=== PATIENT | female | born 1980 | race Hispanic/Latino ===

== ENCOUNTER 2017-08-03 05:30 | Inpatient (IN) | payer MEDICAID ==
[~2017-08-03] VITALS: Ht 157.5 cm; Wt 77.1 kg
[2017-08-03] MEDS ORDERED: LACTATED RINGERS 1000ML 1,000 ML IV PRN (05:34)
[2017-08-03] MEDS ORDERED: OXYTOCIN 10 USP UNITS/ML 20 UNIT in LACTATED RINGERS 1000ML 1,000 ML IV SCH (05:45)
[2017-08-03 06:34] LABS: APPEARANCE,URINE Cloudy (CLEAR); BILIRUBIN,URINE Negative (NEGATIVE); COLOR,URINE Yellow (YELLOW); GLUCOSE, URINE (UA) Negative (NEGATIVE); KETONES,URINE Negative (NEGATIVE); LEUKOCYTE ESTERASE ,URINE Moderate (NEGATIVE); NITRATE,URINE Negative (NEGATIVE); OCCULT BLOOD,URINE Negative (NEGATIVE); PROTEIN,URINE Negative (NEGATIVE)
[2017-08-03 06:48] LABS: BACTERIA,URINE Few /HPF (None Seen); SQUAMOUS EPITHELIAL CELL,UR Moderate /HPF (0-2)
[2017-08-03 06:52] LABS: HEMATOCRIT 35.8 % (36-48); MEAN CORPUSCULAR HEMOGLOBIN 34.7 pg (27.0-33.0); MEAN CORPUSCULAR HGB CONC 35.6 g/dL (32.0-36.0); MEAN CORPUSCULAR VOLUME 97.5 fL (79-99); NUCLEATED RED BLOOD CELLS 0.1 % (0.0-0.19); PLATELET COUNT (AUTO) 226 K/uL (130-400); RED BLOOD CELL COUNT(AUTO) 3.67 MIL/uL (4.00-5.50); RED CELL DISTRIBUTION WIDTH 13.4 % (11.0-15.5); WHITE BLOOD COUNT (AUTO) 8.7 K/uL (4.8-10.8)
[2017-08-03] MEDS ORDERED: OXYTOCIN 10 USP UNITS/ML ONE ×3 (06:57→16:28)
[2017-08-03] MEDS ORDERED: MEPERIDINE-PF 50 MG/ML SYG IVP SCH (14:30)
[2017-08-03] MEDS ORDERED: PROMETHAZINE HCL 25 MG/ML 1ML AMPULE IM SCH (14:30)
[2017-08-03] MEDS ORDERED: MEPERIDINE-PF 50 MG/ML SYG ONE (14:35)
[2017-08-03] MEDS ORDERED: PROMETHAZINE HCL 25 MG/ML 1ML AMPULE IM ONE (14:35)
[2017-08-03] MEDS ORDERED: LACTATED RINGERS 1000ML 1,000 ML IV ONE ×2 (14:54→16:27)
[2017-08-03] MEDS ORDERED: LIDOCAINE HCL 1% 20 ML VIAL ONE (15:02)
[2017-08-03] MEDS ORDERED: IBUPROFEN 800 MG TAB ONE (15:40)
[2017-08-03] MEDS ORDERED: HYDROCODONE/ACETAMINOPHEN 5/325 MG TAB PO PRN (16:00)
[2017-08-03] MEDS ORDERED: DIPH,PERTUSS(ACELL),TET VAC/PF 0.5 ML VIAL IM PRN (16:00)
[2017-08-03] MEDS ORDERED: BENZOCAINE/LANOLIN/ALOE VERA 60 ML AEROSOL TP PRN (16:00)
[2017-08-03] MEDS ORDERED: ACETAMINOPHEN-CODEINE 300/30MG TAB PO PRN (16:00)
[2017-08-03] MEDS ORDERED: MEASLES/MUMPS/RUBELLA VACCINE, LIVE 0.5 ML/VIAL SQ PRN (16:00)
[2017-08-03] MEDS ORDERED: OXYTOCIN-LR 20 UNITS/1000 ML 1,000 ML IV SCH (16:00)
[2017-08-03] MEDS ORDERED: LANOLIN 30GM OINTMENT TP PRN (16:00)
[2017-08-03] MEDS ORDERED: WITCH HAZEL 1 PAD TP PRN (16:00)
[2017-08-03] MEDS ORDERED: IBUPROFEN 800 MG TAB PO PRN (16:00)
[2017-08-03 16:50] VITALS: BP 128/72
[2017-08-03 20:36] VITALS: BP 123/74
[2017-08-03] MEDS: DOCUSATE SODIUM 100 MG CAP PO SCH (21:21)
[2017-08-03] MEDS: ACETAMINOPHEN 325 MG TAB PO PRN (21:22)
[2017-08-04 01:10] VITALS: BP 138/85
[2017-08-04 04:46] VITALS: BP 120/70
[2017-08-04 06:17] LABS: HEPATITIS Bs ANTIGEN SCREEN P Negative (Negative)
[2017-08-04 08:12] VITALS: BP 127/73
[2017-08-04] MEDS: DOCUSATE SODIUM 100 MG CAP PO SCH (09:12)
[2017-08-04] MEDS: ACETAMINOPHEN 325 MG TAB PO PRN (09:42)
[2017-08-04 12:00] VITALS: BP 134/79
[2017-08-04 15:44] VITALS: BP 117/68
== END 2017-08-04 16:25 | disposition home or self-care (01) | DRG 560 ==
LOC: LDH 05:30 → WSH 16:50
PROVIDERS: ADMIT Specialist; ATTEND Specialist
PROC: 0HQ9XZZ Repair Perineum Skin, External Approach (ICD-10-PCS; principal; 2017-08-03)
PROC: 10E0XZZ Delivery of Products of Conception, External Approach (ICD-10-PCS; 2017-08-03)
PROC: 3E033VJ Introduction of Other Hormone into Peripheral Vein, Percutaneous Approach (ICD-10-PCS; 2017-08-03)
PROC: 3E0234Z Introduction of Serum, Toxoid and Vaccine into Muscle, Percutaneous Approach (ICD-10-PCS; 2017-08-03)
PROC: 3E0134Z Introduction of Serum, Toxoid and Vaccine into Subcutaneous Tissue, Percutaneous Approach (ICD-10-PCS; 2017-08-03)
DX: O70.0 First degree perineal laceration during delivery (principal); Z23 Encounter for immunization; Z37.0 Single live birth; Z3A.39 39 weeks gestation of pregnancy
CPT/HCPCS: 36415; 81001; 85027; 86592; 86850; 86900; 86901; 87340; 90715; A4351; A4606; J2175; J2550; J2590; J7120